=== PATIENT | male | born 1960 | race Caucasian/White ===

== ENCOUNTER 2022-01-13 12:49 | Emergency (ER) | payer OTHER, SELFPAY ==
--- NOTE | ~2022-01-13 | XR_ITS ---
EXAMINATION: [id number] INDICATION: Chest pain after fall TECHNIQUE: A frontal view of the chest and four views of the right ribs were obtained. COMPARISON: None. FINDINGS: There is an acute minimally displaced fracture in the posterior aspect of the right sixth r ib. No pleural effusion or pneumothorax. The lungs are free of acute opacities. The cardiomediastinal silhouette is normal. IMPRESSION: 1. Acute minimally displaced fracture in the posterior aspect of the right sixth rib. Reviewed, dictated and finalized at location A. IMPRESSION: 1. Acute minimally displaced fracture in the posterior aspect of the right sixt h rib.
--- NOTE | ~2022-01-13 | CT_ITS ---
EXAMINATION: CT cervical spine wo con DATE: 01/13/2022 14:17 INDICATION: Head injury TECHNIQUE: Computed tomography (CT) of the cervical spine was performed without intravenous contrast. The dose-length product (DLP) was 556.19 mGy-cm. Automated exposure control and iterative reconstruc tion technique were employed. COMPARISON: None FINDINGS: There are 2 mm of retrolisthesis of C3 on C4. The vertebral body heights are maintained. Th ere is mild loss of intervertebral disc space height at C6-7 and C7-T1. The odontoid is intact. The p revertebral soft tissues are normal. Small degenerative osteophytes project from the anterior endplat es of multiple vertebral bodies. There is mild multilevel facet and uncovertebral joint osteoarthriti s. IMPRESSION: 1. Mild cervical spondylosis without acute findings. Reviewed, dictated and finalized at location A.
--- NOTE | ~2022-01-13 | CT_ITS ---
EXAMINATION: CT brain wo con INDICATION: Head injury COMPARISON: None TECHNIQUE: Standard unenhanced head CT. The dose-length product (DLP) was 681.00 mGy-cm. The mA was a djusted according to patient size. Iterative reconstruction technique was employed. FINDINGS: There is no acute intraparenchymal hemorrhage. No evidence of mass lesion. No evidence of a cute infarction. There is mild periventricular and subcortical hypodensity probably related to small vessel ischemic disease. There is mild prominence of the sulci and ventricles related to cerebral atr ophy. Intracranial calcified cerebral atherosclerosis is noted. There are no extra-axial collections. There is no mass effect or midline shift. There is a right occipital scalp hematoma. The visualized sinuses and mastoid air cells are well aerated. IMPRESSION: 1. Right occipital scalp hematoma without acute intracranial abnormality. 2. Age related findings. Reviewed, dictated and finalized at location A.
[2022-01-13 13:07] VITALS: BP 162/94; PULSE 77; RESP 19; TEMP 36.7; O2SAT 99
--- NOTE | 2022-01-13 13:11 | ED.GENADULT ---
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 Patient fell off the back of his truck. He fell 5 ft and landed on his right shoulder and then struck his head on the ground. He denies loss of consciousness or blood thinners. Patient is currently complaining of right-sided chest pain as well as difficulty breathing. He is concerned that he broke some ribs. Patient denies numbness/tingling/weakness in any extremity. Patient denies any other injuries. Related Data Home Medications Medication Instructions Recorded Confirmed atorvastatin 20 mg tablet 20 mg PO DAILY 07/27/21 07/27/21 Allergies Allergy/AdvReac Type Severity Reaction Status Date / Time No Known Allergies Allergy Verified 01/13/22 13:14 Review of Systems Review of Systems: CONSTITUTIONAL: Denies night sweats. EYES: No eye pain ENT: Denies rhinorrhea CARDIOVASCULAR: Denies palpitations RESPIRATORY: Denies hemoptysis GASTROINTESTINAL: Denies hematemesis GENITOURINARY: Denies hematuria. SKIN: Denies rash MUSCULOSKELETAL: Denies myalgia. NEUROLOGIC: Denies weakness. PSYCHIATRIC: Denies delusions [facility]LY [facility] Past Medical History Medical History (Updated 01/13/22 @ 15:16 by Adam Welsh MD) H/O lipoma HTN (hypertension) Hyperlipidemia Social History Social History (Updated 01/13/22 @ 13:13 by Adam Welsh MD) Social History: Patient drinks alcohol every other day, denies tobacco or drug use Exam Narrative: APPEARANCE: No apparent distress. Head: patient has a small hematoma over the right parietal scalp, no break in the skin. EYES: PERRLA/EOMI, Pupils 2 mm equal and reactive NOSE: Normal no drainage NECK: Supple, Trachea midline RESPIRATORY: patient has equal breath sounds bilaterally. Slightly tachypneic. He is breathing shallowly. CARDIOVASCULAR: S1S2 appreciated , no peripheral edema ABDOMINAL: Soft, nontender, nondistended, No guarding or rebound MUSCULOSKELETAl: No obvious deformities, head to toe trauma exam revealed tenderness to palpation over the right lateral ribcage. Extremity exams are normal. NEURO: Alert. Moving 4/4 extremities SKIN:: Warm, dry. Normal color PSYCHIATRIC: Normal affect Course Vital Signs Vital signs: Vital Signs Temperature 98.0 F 01/13/22 13:07 Pulse Rate 77 01/13/22 13:07 Respiratory Rate 19 01/13/22 13:07 Blood Pressure 162/94 H 01/13/22 13:07 Pulse Oximetry 99 01/13/22 13:07 Oxygen Delivery Room Air 01/13/22 13:07 Temperature 98.4 F 01/13/22 14:41 Pulse Rate 63 01/13/22 14:41 Respiratory Rate 16 01/13/22 14:41 Blood Pressure 148/80 H 01/13/22 14:41 Pulse Oximetry 98 01/13/22 14:41 Oxygen Delivery Room Air 01/13/22 13:07 Medical Decision Making MDM Narrative Medical decision making narrative: this is a 61-year-old male presenting ED after fall from greater than [address] of the head and C-spine have been ordered due to mechanism. A chest x-ray with right rib views of been ordered to evaluate for rib fractures, pneumo/hemothorax. Patient was offered opiate pain medication and refused. He would like Motrin Tylenol. CT of the head and C-spine were negative for any acute injury. chest and rib x-ray revealed a minimally displaced posterior 6th rib fracture without evidence of pneumothorax or hemothorax. Upon re-evaluation the patient is resting comfortably. He is saturating well on room air. He is not tachypneic or in respiratory distress. I spoke to patient at length about the risk of pneumonia with rib fractures and he understands when to return to the emergency department. Patient be discharged home with Motrin Tylenol and [place] for breakthrough pain. He will be given incentive spirometer to use 10 times hourly while awake. Vital Signs Vital
[2022-01-13] MEDS: IBUPROFEN 400 MG TABLET 800 MG PO (13:23)
[2022-01-13] MEDS: ACETAMINOPHEN 500 MG TABLET 1000 MG PO (13:23)
[2022-01-13 14:41] VITALS: BP 148/80; PULSE 63; RESP 16; TEMP 36.9; O2SAT 98
[2022-01-13 15:56] VITALS: BP 158/86; PULSE 65; RESP 14; O2SAT 99
== END 2022-01-13 15:57 | disposition home or self-care (01) ==
PROVIDERS: Emergency Provider Emergency Medicine; PCP Family Medicine Adolescent Medicine
DX: S22.31XA Fracture of one rib, right side, initial encounter for closed fracture (principal); S09.90XA Unspecified injury of head, initial encounter; W17.89XA Other fall from one level to another, initial encounter; I10 Essential (primary) hypertension; E78.5 Hyperlipidemia, unspecified
CPT/HCPCS: 70450; 71101; 72125; 99284; A9270

== ENCOUNTER 2022-01-19 17:22 | Outpatient (CLI) | payer OTHER, SELFPAY ==
--- NOTE | ~2022-01-19 | XR_ITS ---
EXAMINATION: XR chest 2V Exam Date/Time: 01/19/2022 17:35 CDT HISTORY: R06.02 - Shortness of breath Comparison: None available. RESULT: Lines, tubes, and devices: None. Lungs and pleura: Linear bibasilar opacities likely representing scar or atelectasis. Cardiomediastinal silhouette: Unremarkable. Other: No acute osseous or upper abdominal finding. IMPRESSION: No acute cardiopulmonary process. Reviewed, dictated and finalized at location K.
--- NOTE | ~2022-01-19 | XR_ITS ---
EXAM: XR shoulder RT min 2V, XR scapula RT DATE: 01/19/2022 17:44 HISTORY: right shoulder pain . COMPARISON: None available. FINDINGS: Normal mineralization. No fracture or dislocation. No lytic or blastic lesion. Moderate ac romioclavicular and mild glenohumeral osteoarthritis. No erosion or periosteal change. Soft tissues w ithin normal limits. IMPRESSION: No acute osseous finding in the right shoulder or scapula. Reviewed, dictated and finalized at location K. IMPRESSION: No acute osseous finding in the right shoulder or scapula.
== END 2022-01-19 17:23 | disposition home or self-care (01) ==
LOC: ANHIMG 17:30
PROVIDERS: PCP Family Medicine Adolescent Medicine; Visit Provider Physician Assistant
DX: M25.511 Pain in right shoulder (principal); S22.31XD Fracture of one rib, right side, subsequent encounter for fracture with routine healing; R06.02 Shortness of breath
CPT/HCPCS: 71046; 73010; 73030

== ENCOUNTER → 2022-02-11 16:37 | Outpatient (CLI) | payer OTHER, SELFPAY ==
--- NOTE | ~2022-02-11 | MR_ITS ---
EXAMINATION: MR shoulder RT wo con DATE: 02/11/2022 16:43 INDICATION: Right shoulder pain. Fall. TECHNIQUE: Magnetic resonance imaging (MRI) of the right shoulder was performed without intravenous c ontrast. Sequences included axial PD-weighted FS FSE, coronal oblique PD-weighted FS FSE and T2-weigh phu FS FSE, and sagittal oblique T2-weighted FS FSE and T1-weighted FSE. COMPARISON: Right shoulder radiographs 01/19/2022 FINDINGS: Coracoacromial arch: The acromion undersurface is curved in morphology (type II). There is severe acromioclavicular joint osteoarthritis including inferiorly directed osteophytes. There is mild subacromial/subdeltoid bursit is. Rotator cuff: There is mild supraspinatus and infraspinatus tendinopathy. Teres minor tendon is normal. There is mi ld subscapularis tendinopathy. No tear. There is no asymmetric fatty atrophy of the rotator cuff musc le bellies. Biceps tendon and glenoid labrum: Biceps tendon is in bicipital groove. Intra-articular biceps tendon is normal. There is a degenerativ e tear of the superior labrum from 11:00 to 12:00 (SLAP tear). Fluid: There is a small glenohumeral joint effusion. Bones/cartilage: There is shallow partial-thickness cartilage loss of glenoid and humeral head. There is a subchondral cyst in superior glenoid. IMPRESSION: 1. Mild rotator cuff tendinopathy. No tear. 2. Mild glenohumeral joint chondrosis. 3. Severe acromioclavicular joint osteoarthritis. 4. Small glenohumeral joint effusion. 5. Mild subacromial/subdeltoid bursitis. Reviewed, dictated and finalized at location A.
== END ==
PROVIDERS: PCP Family Medicine Adolescent Medicine; Visit Provider Physician Assistant
DX: M25.511 Pain in right shoulder (principal); W19.XXXD Unspecified fall, subsequent encounter; M75.81 Other shoulder lesions, right shoulder; M94.8X1 Other specified disorders of cartilage, shoulder; M19.011 Primary osteoarthritis, right shoulder; M25.411 Effusion, right shoulder; M75.51 Bursitis of right shoulder
CPT/HCPCS: 73221

== ENCOUNTER 2024-04-03 00:14 | Day surgery (SDC) | payer BC, SELFPAY ==
[2024-03-23 15:00] VITALS: BMI 40.3
[2024-04-03 06:23] VITALS: BP 140/83; PULSE 68; RESP 16; TEMP 36.3; O2SAT 98
[2024-04-03] MEDS: LACTATED RINGERS 1,000 ML 150 ML IV CONT (06:32)
--- NOTE | 2024-04-03 06:57 | WPDANESEPPF ---
Anes - Initial Pre Proc Eval Procedure: Operation Date: 04/03/24 07:30 Proposed Procedures p Screening Colonoscopy - Carson Lara MD Date/Time: 04/03/24 06:57 Surgeon: Carson Lara MD Pre Op Diagnosis: screening for malignant neoplasm of colon Patient Data Age: 63 Gender: M Height: 1.68 m Weight: 113 kg Last Vital Signs Temp 36.3 C L 04/03/24 06:23 Pulse 68 04/03/24 06:23 Resp 16 04/03/24 06:23 BP 140/83 04/03/24 06:23 Pulse Ox 98 04/03/24 06:23 O2 Del Method Room Air 04/03/24 06:23 Allergies Allergy/AdvReac Type Severity Reaction Status Date / Time No Known Allergies Allergy Verified 04/03/24 06:21 Home Medications ?Medication ?Instructions ?Recorded ?Confirmed ?Type testosterone 2 pump topical DAILY #75 grams 11/24/23 04/03/24 Rx atorvastatin 40 mg tablet 40 mg PO DAILY #90 tabs 01/29/24 04/03/24 Rx bupropion HCl 150 mg tablet,12 hr See Rx Instructions .Route 02/07/24 04/03/24 Rx sustained-release .COMPLEX #90 tabs metoprolol succinate 100 mg See Rx Instructions .Route 02/22/24 04/03/24 Rx tablet,extended release 24 hr .COMPLEX #90 tabs Patient hx anesthesia problems: none Family hx anesthesia problems: none Results Review: All pre-operative results and documents have been reviewed as part of the pre-operative evaluation. PENDING SALE TO [facility] Past Medical History Medical History (Updated 04/03/24 @ 06:58 by Jesus Enrique MD) Morbid obesity Fracture of one rib, right side, subsequent encounter for fracture with routine healing H/O lipoma HTN (hypertension) Social History Social History (Updated 04/03/24 @ 06:59 by Jesus Enrique MD) Social History: Patient drinks alcohol every other day, denies drug use Smoking status: Former smoker Smokeless tobacco user: chewing tobacco Alcohol intake: current Drinks per week: 10 Substance use type: does not use Do You Feel Safe in your Home?: Yes Lack of Transportation: No Lack of Food: Never True Current Housing: I Have Housing Concerned About Future Housing: No Difficulty Paying Gas/Electric Bills: No Difficulty Paying for Meds: No Currently Unemployed: No Education: High School Diploma/GED Difficulty w/ Childcare or Family Care: No Living arrangements: with family Spiritual care concerns: No Anes - Eval Final PreProcedure Day of Procedure 04/03/24 06:57 Patient weight: morbidly obese Heart: regular rate and rhythm Lungs: clear to auscultation Airway: Mallampati scale class II Neurological: alert and oriented Last oral intake: >/= 8 hours ASA classification: III Emergent: no Anesthetic plan: proceed Anesthesia type and monitoring: general GIVS and standard monitoring Results Review: All pre-operative results and documents have been reviewed as part of the pre-operative evaluation. Informed Consent: The patient's anesthetic plan and its attendant risks and benefits were discussed with the patient/family/POA. Questions were solicited and answers provided to the satisfaction of the patient/family/POA.
[2024-04-03] MEDS: FAMOTIDINE 20 MG/2 ML VIAL IV PUSH (07:00)
[2024-04-03] MEDS: ONDANSETRON INJ 4 MG/2 ML VIAL IV PUSH (07:00)
--- NOTE | 2024-04-03 07:40 | PM.HPGS ---
History of Present Illness History of Present Illness Consent: Risks, benefits, and alternatives have been discussed and questions answered. Patient agrees to proceed with procedure. Chief complaint: screening for malignant neoplasm of colon Narrative: Jozef Little is a 63 year old male here for screening colonoscopy, last one about 10 years ago Review of Systems Review of Systems: All systems reviewed & are unremarkable except as noted in HPI and below PMFSH Past Medical History Medical History (Updated 04/03/24 @ 06:58 by Jesus Enrique MD) Morbid obesity Fracture of one rib, right side, subsequent encounter for fracture with routine healing H/O lipoma HTN (hypertension) Social History Social History (Updated 04/03/24 @ 06:59 by Jesus Enrique MD) Social History: Patient drinks alcohol every other day, denies drug use Smoking status: Former smoker Smokeless tobacco user: chewing tobacco Alcohol intake: current Drinks per week: 10 Substance use type: does not use Do You Feel Safe in your Home?: Yes Lack of Transportation: No Lack of Food: Never True Current Housing: I Have Housing Concerned About Future Housing: No Difficulty Paying Gas/Electric Bills: No Difficulty Paying for Meds: No Currently Unemployed: No Education: High School Diploma/GED Difficulty w/ Childcare or Family Care: No Living arrangements: with family Spiritual care concerns: No Meds Home Medications and Allergies Home Medications ?Medication ?Instructions ?Recorded ?Confirmed ?Type testosterone 2 pump topical DAILY #75 grams 11/24/23 04/03/24 Rx atorvastatin 40 mg tablet 40 mg PO DAILY #90 tabs 01/29/24 04/03/24 Rx bupropion HCl 150 mg tablet,12 hr See Rx Instructions .Route 02/07/24 04/03/24 Rx sustained-release .COMPLEX #90 tabs metoprolol succinate 100 mg See Rx Instructions .Route 02/22/24 04/03/24 Rx tablet,extended release 24 hr .COMPLEX #90 tabs Allergies Allergy/AdvReac Type Severity Reaction Status Date / Time No Known Allergies Allergy Verified 04/03/24 06:21 Vital Signs Vital Signs - 24 hr 04/03/24 06:23 Temperature 97.4 F L Pulse Rate 68 Respiratory Rate 16 Blood Pressure 140/83 Pulse Oximetry 98 Oxygen Delivery Room Air Exam Const: General: comfortable and no acute distress HENMT: Face/Nose/Sinus: Normal nares present Eyes: General: appearance normal, both eyes and all related structures Neck: Neck: no JVD Resp: Auscultation: clear to auscultation bilaterally Cardio: Rate: regular rate Rhythm: regular rhythm GI: Inspection: non-distended GI Palp: Yes Soft to palpation Skin: General skin exam: normal color Neuro: General: gait normal Speech: normal speech Extrem: General: normal to inspection Psych: Mental Status: mental status grossly normal Assessment and Plan Assessment and plan (1) Colon cancer screening: Code(s): Z12.11 - Encounter for screening for malignant neoplasm of colon Status: Acute Assessment and Plan: colonoscopy
[2024-04-03 07:41] VITALS: BP 125/69; PULSE 64; RESP 20; O2SAT 95
[2024-04-03 07:51] VITALS: BP 121/65; PULSE 60; RESP 23; O2SAT 96
[2024-04-03 08:01] VITALS: BP 135/78; PULSE 53; RESP 20; O2SAT 95
== END 2024-04-03 08:13 | disposition home or self-care (01) ==
PROVIDERS: PCP Family Medicine Adolescent Medicine; Referring Provider Nurse Practitioner Family; Visit Provider Internal Medicine Gastroenterology
PROC: 0DJD8ZZ Inspection of Lower Intestinal Tract, Via Natural or Artificial Opening Endoscopic (ICD-10-PCS; CPT 45378; principal; 2024-04-03 07:30)
DX: Z12.11 Encounter for screening for malignant neoplasm of colon (principal); D12.0 Benign neoplasm of cecum; D12.2 Benign neoplasm of ascending colon; D12.3 Benign neoplasm of transverse colon; D12.5 Benign neoplasm of sigmoid colon; I10 Essential (primary) hypertension; F17.220 Nicotine dependence, chewing tobacco, uncomplicated; E66.01 Morbid (severe) obesity due to excess calories; Z68.41 Body mass index [BMI] 40.0-44.9, adult
CPT/HCPCS: 45385; 88305; J2405; J2704; J7120

== ENCOUNTER 2024-06-18 13:46 | Emergency (ER) | payer BC, SELFPAY | END 2024-06-18 13:50 | disposition left against medical advice (07) | PROVIDERS: Emergency Provider Nurse Practitioner Family; PCP Family Medicine Adolescent Medicine | DX: Z53.21 Procedure and treatment not carried out due to patient leaving prior to being seen by health care provider (principal) | CPT/HCPCS: 99199 ==

== ENCOUNTER 2024-06-18 14:40 | Emergency (ER) | payer BC, SELFPAY ==
[2024-06-18 14:45] VITALS: BP 160/80; PULSE 67; RESP 17; TEMP 36.8; O2SAT 99
[2024-06-18 17:06] VITALS: BP 182/93
--- NOTE | 2024-06-18 17:17 | ED.RECABL ---
HPI - Recheck/Abnormal Lab/Rx General Chief Complaint: Recheck/Abnormal Lab/Rx <Genevieve Triplett APRN - Last Filed: 06/18/24 17:20> Stated Complaint: high BP <Genevieve Triplett APRN - Last Filed: 06/18/24 17:20> Time Seen by Provider: 06/18/24 17:00 <Genevieve Triplett APRN - Last Filed: 06/18/24 17:20> Focused HPI: Patient is a 63-year-old male who presents to the ER with concerns of high blood pressure. He reports his took his blood pressure this morning and was in the 180s. Patient reports he went to [facility] and his readings were the same. He reports he does have a primary care provider and takes daily blood pressure medication. Patient reports he was on one previous blood pressure medication but his PCP took him off because of side effects. He denies any headache, any lower extremity swelling, abdominal pain, back pain, palpitations, or chest pain. GENERAL: Well-appearing, well-nourished, and in no acute distress. HEAD: Normocephalic, atraumatic. CHEST: Clear to auscultation. ?No respiratory distress. HEART: Regular rate and rhythm.? NEURO: ?Alert and oriented x3. Patient screened in triage and initial orders placed.? ?Additional care and disposition to be based upon?diagnostic testing and treatment. <Genevieve Triplett APRN - Last Filed: 06/18/24 17:20> History of Present Illness HPI narrative: Agree with the above triage note. 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 He has been taking metoprolol 100 mg extended release. He intermittently takes his blood pressure at home and states most recently on Tuesday was 140 systolic. He denies any symptoms including chest pain or shortness of breath, vision changes. <Jaimie Boyle PA-C - Last Filed: 06/18/24 18:56> Related Data Allergies/Adverse Reactions: Allergies Allergy/AdvReac Type Severity Reaction Status Date / Time No Known Allergies Allergy Verified 06/18/24 17:55 <Genevieve Triplett APRN - Last Filed: 06/18/24 17:20> Review of Systems Review of Systems: All systems reviewed & are unremarkable except as noted in HPI and below <Jaimie Boyle PA-C - Last Filed: 06/18/24 18:56> PMFSH Past Medical History Medical History: Medical History Morbid obesity Fracture of one rib, right side, subsequent encounter for fracture with routine healing H/O lipoma HTN (hypertension) <Genevieve Triplett APRN - Last Filed: 06/18/24 17:20> Social History Social History: Social History Social History: Patient drinks alcohol every other day, denies drug use Smoking status: Former smoker Smokeless tobacco user: chewing tobacco Alcohol intake: current Drinks per week: 10 Substance use type: does not use Do You Feel Safe in your Home?: Yes Lack of Transportation: No Lack of Food: Never True Current Housing: I Have Housing Concerned About Future Housing: No Difficulty Paying Gas/Electric Bills: No Difficulty Paying for Meds: No Currently Unemployed: No Education: High School Diploma/GED Difficulty w/ Childcare or Family Care: No Living arrangements: with family Spiritual care concerns: No <Genevieve Triplett, [employer] - Last Filed: 06/18/24 17:20> Exam Narrative: GENERAL: Well-appearing, well-nourished, and in no acute distress. HEAD: Normocephalic, atraumatic. EYES: EOMI. ENT: Nares clear, no rhinorrhea or epistaxis. Mucous membranes moist. NECK: Supple. CHEST: Clear to auscultation. No respiratory distress. HEART: Regular rate and rhythm. No murmur heard. Normal peripheral pulses. ABDOMEN: Soft, nontender, nondistended, normal active bowel sounds. EXTREMITIES: Normal range of motion. No edema. SKIN: Warm, dry, no rash. NEURO: No focal deficits. Alert and oriented x3 <Jaimie Boyle PA-C - Last Filed: 06/18/24 18:56> Course Vital Signs Vital signs: Vital Signs Temperature 98.2 F 03/03/25 14:45 Pulse Rate 67 06/18/24 14:45 Respiratory Rate 17 06/18/24 14:45 Blood Pressure 160/80 H 06/18/24 14:45 Pulse Oximetry 99 06/18/24 14:45 Temperature 97.8 F 06/18/24 17:53 Pulse Rate 60 06/18/24 17:53 Respiratory Rate 19 06/18/24 17:53 Blood Pressure 184/91 H 06/18/24 17:53 Pulse Oximetry 98 06/18/24 17:53 Oxygen Delivery Room Air 06/18/24 17:53 <Genevieve Triplett, [employer] - Last Filed: 06/18/24 17:20> Vital Signs Temperature 98.2 F 06/18/24 14:45 Pulse Rate 67 06/18/24 14:45 Respiratory Rate 17 06/18/24 14:45 Blood Pressure 160/80 H 06/18/24 14:45 Pulse Oximetry 99 06/18/24 14:45 Temperature 97.8 F 06/18/24 17:53 Pulse Rate 60 06/18/24 17:53 Respiratory Rate 19 06/18/24 17:53 Blood Pressure 184/91 H 06/18/24 17:53 Pulse Oximetry 98 06/18/24 17:53 Oxygen Delivery Room Air 06/18/24 17:53 <Jaimie Boyle PA-C - Last Filed: 06/18/24 18:56> MDM - Recheck/Abnormal Lab/Rx MDM Narrative Medical decision making narrative: 63-year-old male with history of hypertension presents to emergency department for hypertension. Patient checked his blood pressure at home today and found to be 180 systolic. 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 He does intermittently check his blood pressures at home, most recently it was 140 systolic 2 days ago. He is taking metoprolol succinate 100 mg daily and is monitored by his PCP. Upon arrival to the ED patient's blood pressure is 160/80. He denies signs or symptoms of hypertensive emergency including chest pain, shortness of breath, vision changes, abdominal pain. He is well appearing resting comfortably in exam bed. Patient was educated on asymptomatic hypertension and importance of continuation of his blood pressure medications in addition to keeping a blood pressure log following with his PCP. Discussed strict ED return precautions. He and his are agreeable with the plan verbalized understanding. Discharged in stable condition. <Jaimie Boyle PA-C - Last Filed: 06/18/24 18:56> Discharge Plan Discharge Clinical Impression: Asymptomatic hypertension <Genevieve Triplett APRN - Last Filed: 06/18/24 17:20> Patient Disposition: Home, Self-Care <Genevieve Triplett APRN - Last Filed: 06/18/24 17:20> Condition: Stable <Genevieve Triplett APRN - Last Filed: 06/18/24 17:20> Instructions: Antibiotic Form, Hypertension (ED) <Genevieve Triplett APRN - Last Filed: 06/18/24 17:20> Additional Instructions: Please continue taking your blood pressure medications daily and keep a blood pressure log as discussed. Follow up with her primary care provider. Return to the emergency department if you develop chest pain, shortness of breath, vision changes or other concerning symptoms. <Genevieve Triplett APRN - Last Filed: 06/18/24 17:20> Patient Language: Malawian <Genevieve Triplett APRN - Last Filed: 06/18/24 17:20> Prescriptions: No Action atorvastatin 40 mg tablet 40 mg PO DAILY Qty: 90 2RF bupropion HCl 150 mg tablet sustained-release 12 hr See Rx Instructions .ROUTE .COMPLEX Qty: 90 1RF Dose Instruction: Take 1 tablet by mouth once daily Rx Instructions: Take 1 tablet by mouth once daily testosterone 20.25 mg/1.25 gram (1.62 %) gel in metered-dose pump 2 pump topical DAILY Qty: 75 5RF Rx Instructions: apply 1 pump amount over max area of EACH upper arm and shoulder metoprolol succinate 100 mg tablet extended release 24 hr See Rx Instructions .ROUTE .COMPLEX Qty: 90 0RF Dose Instruction: Take 1 tablet by mouth once daily Rx Instructions: Take 1 tablet by mouth once daily <Genevieve Triplett APRN - Last Filed: 06/18/24 17:20> Follow-up/Referrals: Nazario Mckeon MD [Physician] - <Genevieve Triplett APRN - Last Filed: 06/18/24 17:20>
[2024-06-18 17:53] VITALS: BP 184/91; PULSE 60; RESP 19; TEMP 36.6; O2SAT 98
[2024-06-18 19:02] VITALS: BP 182/77; PULSE 65; RESP 16; O2SAT 99
== END 2024-06-18 19:03 | disposition home or self-care (01) ==
PROVIDERS: Emergency Provider Physician Assistant
DX: I10 Essential (primary) hypertension (principal); E66.01 Morbid (severe) obesity due to excess calories; Z87.891 Personal history of nicotine dependence; Z68.41 Body mass index [BMI] 40.0-44.9, adult
CPT/HCPCS: 71046; 93005; 99283

== ENCOUNTER 2024-08-14 14:34 | Outpatient (RCR) | payer BC, SELFPAY ==
[2024-08-14 15:27] VITALS: BMI 42.0
== END 2024-10-30 07:56 | disposition home or self-care (01) ==
LOC: ANHDMC 14:34
PROVIDERS: PCP Family Medicine Adolescent Medicine; Visit Provider Family Medicine
DX: I10 Essential (primary) hypertension (principal); Z71.3 Dietary counseling and surveillance
CPT/HCPCS: 97802